=== PATIENT | female | born 1965 | race Caucasian/White ===

== ENCOUNTER 2018-08-27 08:57 | Day surgery (SDC) | payer BC ==
[2018-08-27] MEDS ORDERED: LIDOCAINE 4% SOLUTION 50 ML BTL (11:05)
[2018-08-27] MEDS ORDERED: FENTAnyl 50 MCG/ML VIAL (12:03)
[2018-08-27] MEDS ORDERED: MIDAZOLAM 1 MG/ML 2 ML INJ ×2 (12:03)
== END 2018-08-27 12:54 | disposition home or self-care (01) ==
LOC: GIL 08:57
DX: K29.50 Unspecified chronic gastritis without bleeding (principal); K64.8 Other hemorrhoids; D12.5 Benign neoplasm of sigmoid colon; K20.8 Other esophagitis; E11.9 Type 2 diabetes mellitus without complications
CPT/HCPCS: 43239; 88305; 88312